=== PATIENT | female | born 1990 | race Caucasian/White ===

== ENCOUNTER 2018-02-21 06:08 | Inpatient (IN) ==
[~2018-02-21 06:08] MED LIST: D5 1/2 NS 1000 ML 1,000 ML IV ONE; D5LR 1L W PITOCIN 10 UNITS/L 10 UNITS/1,000 ML BAG IV ONE
--- NOTE | 2018-02-21 07:05 | DR.OB ---
OB Quick Note - Assessment/Plan Assessment/Plan: L&D 02/21/18 at 6:45am S-No complaint. O-Afebrile,VSS BRX=494 with good LTV, +accel, no decel. CTX=occasional, mild CVX=2cm/50%/-1/VTX AROM with clear fluid. IUPC and FSE placed. A-IUP at 38 6/7 weeks for induction () Polyhydramnios P-Begin pitocin induction Anticpate
[2018-02-21] MEDS ORDERED: LR 1000 ML IV 1,000 ML IV ONE (07:25)
[2018-02-21] MEDS ORDERED: FENTANYL INJ 100 mcg ONE (07:26)
[2018-02-21] MEDS ORDERED: ADRENALINE CHL INJ ONE (07:26)
[2018-02-21] MEDS ORDERED: NAROPIN EPIDURAL 0.2% + FENTANYL 90MCG 60 ML EPI ONE (07:26)
[2018-02-21] MEDS ORDERED: D5 1/2 NS 1L W PITOCIN 20 UNITS/L 20 UNITS/1,000 ML BAG IV ONE (07:27)
[2018-02-21] MEDS ORDERED: PITOCIN ONE (07:27)
[2018-02-21] MEDS ORDERED: MORPHINE SULFATE INJ 2 MG INJ IVP PRN (07:46)
[2018-02-21] MEDS ORDERED: PHENERGAN INJ 25 MG IV PRN ×2 (07:46→10:39)
[2018-02-21] MEDS ORDERED: REGLAN INJ 10 MG VIAL IVP PRN (07:46)
[2018-02-21] MEDS ORDERED: D5LR 1L W PITOCIN 10 UNITS/L 10 UNITS/1,000 ML BAG IV PRN (07:46)
[2018-02-21] MEDS ORDERED: NUBAIN INJ 200 MG VIAL MULTIDOSE IVP PRN (07:46)
[2018-02-21] MEDS ORDERED: PITOCIN IVP ONE (07:46)
[2018-02-21] MEDS ORDERED: D5 1/2 NS 1000 ML 1,000 ML IV SCH (07:46)
[2018-02-21] MEDS ORDERED: FLUVIRIN IM ONE (09:24)
[2018-02-21] MEDS: D5 1/2 NS 1000 ML 1,000 ML with PITOCIN 20 UNITS IV SCH ×4 (11:31→21:12)
[2018-02-21] MEDS ORDERED: DERMOPLAST SPRAY TOP PRN (11:39)
[2018-02-21] MEDS ORDERED: AMBIEN PO PRN (11:39)
[2018-02-21] MEDS ORDERED: ADACEL or BOOSTRIX TDaP VACCINE IM ONE (11:39)
[2018-02-21] MEDS ORDERED: MILK OF MAGNESIA PO PRN (11:39)
[2018-02-21] MEDS: MOTRIN TAB 800 MG PO PRN ×2 (12:11→21:11)
--- NOTE | 2018-02-21 13:27 | DR.OB ---
OB Quick Note - Assessment/Plan Assessment/Plan: Delilvery Note RECOATER 02/21/18 at 10:32am Patient complete and pushing. Head delivered over intact perineum. Nose and mouth bulb suctioned. No nuchal cord. Body delivered over intact perineum. Cord clamped x 2 and cut. handed to attendant. Cord sent for gases. Placenta delivered spontaneously / intact / 3 vessel cord. No CVX / vaginal / perineal tears. Viable female infant, VTX/OA, wt=7'3" and 9/9, stable to NBN. Mother stable to RR. RYI=[id number].
[2018-02-21] MEDS ORDERED: PERCOCET TAB 5/325 MG PO PRN (16:03)
[2018-02-21] MEDS ORDERED: COLACE CAP 100 MG PO SCH (21:00)
[2018-02-21] MEDS: ZANTAC PO SCH (21:07)
[2018-02-22] MEDS: D5 1/2 NS 1000 ML 1,000 ML with PITOCIN 20 UNITS IV SCH ×2 (04:09)
[2018-02-22 05:24] LABS: HEMATOCRIT 29.3 % (36.0-47.0)
[2018-02-22] MEDS: ZANTAC PO SCH ×2 (08:48→20:32)
[2018-02-22] MEDS ORDERED: PRENATAL PLUS PO SCH (09:00)
[2018-02-22] MEDS: MOTRIN TAB 800 MG PO PRN ×2 (11:10→20:32)
[2018-02-22] MEDS ORDERED: REGLAN INJ 10 MG VIAL IVP PRN (14:17)
[2018-02-22] MEDS ORDERED: PHENERGAN INJ 25 MG IV PRN (14:17)
[2018-02-22] MEDS ORDERED: PERCOCET TAB 5/325 MG PO PRN (14:18)
[2018-02-22] MEDS ORDERED: MILK OF MAGNESIA PO PRN (14:18)
[2018-02-22] MEDS ORDERED: AMBIEN PO PRN (14:18)
[2018-02-22] MEDS ORDERED: DERMOPLAST SPRAY TOP PRN (14:18)
[2018-02-22] MEDS ORDERED: COLACE CAP 100 MG PO SCH (21:00)
[2018-02-23] MEDS ORDERED: DEPO-PROVERA CONTRACEPTIVE INJ IM ONE (07:08)
[2018-02-23] MEDS ORDERED: PRENATAL PLUS PO SCH (09:00)
[2018-02-23] MEDS: ZANTAC PO SCH (09:03)
[2018-02-23] MEDS: MOTRIN TAB 800 MG PO PRN (09:10)
[2018-02-23 10:40] VITALS: BP 119/72
== END 2018-02-23 11:20 | disposition home or self-care (01) | DRG 807 ==
LOC: LD 06:08 → MED/SURG 11:40
PROVIDERS: ADMIT Specialist; ATTEND Specialist
CPT/HCPCS: 36415; 59409; 80048; 80307; 81001; 84112; 85014; 85018; 85025; 86592; 86850; 86900; 86901; 90686; 90715; 99284; A4222; S0197; G0434; J0171; J1050; J2590; J3010; J7120; S5010